=== PATIENT | female | born 1985 | race Caucasian/White ===

== ENCOUNTER 2025-02-05 19:49 | Emergency (ER) | payer OTHER ==
[~2025-02-05] VITALS: Ht 152.4 cm; Wt 90.0 kg
[~2025-02-05 19:49] MED LIST: CELEXA40 MG PO
[2025-02-05 20:13] LABS: BASOPHILS 0.4 % (0.1-1.2); EOSINOPHILS 0.6 % (0.7-5.8); LYMPHOCYTES 24.9 % (19.3-51.7); MCH 30.5 PG (25.6-32.2); MCHC 33.3 g/dL (32.2-35.5); MCV 91.6 fL (79.4-94.8); MONOCYTES 6.7 % (4.7-12.5); NEUTROPHILS 67.2 % (34.0-71.1); RBC 4.03 M/uL (3.93-5.22)
[2025-02-05 20:28] LABS: ALT (SGPT) 17.0 U/L (14-59); AST (SGOT) 10.0 U/L (15-37); GLOMERULAR FILTRATION RATE,EST 86.0 mL/min (>60); PROTEIN, TOTAL 7.3 g/dL (6.4-8.2); UREA NITROGEN 12.0 mg/dL (7-18)
[2025-02-05] MEDS ORDERED: PREDNISONE20 MG PO (20:34)
[2025-02-05] MEDS ORDERED: CIPRO500 MG PO (20:34)
[2025-02-05] MEDS ORDERED: CIPROFLOXACIN 500 MG TAB PO ONE (20:45)
[2025-02-05] MEDS ORDERED: predniSONE 20 MG TAB PO ONE (20:45)
[2025-02-05] MEDS ORDERED: FLUCONAZOLE150 MG PO (21:00)
[2025-02-05 21:02] VITALS: BP 137/72
[2025-02-06] MEDS ORDERED: LYRICA150 MG PO (18:34)
[2025-02-06] MEDS ORDERED: LYRICA200 MG PO (18:34)
[2025-02-06] MEDS ORDERED: TRAMADOL HCL50 MG PO (18:35)
[2025-02-06] MEDS ORDERED: ADDERALL 10 MG10 MG PO (18:37)
[2025-02-06] MEDS ORDERED: ADDERALL XR 2525 MG PO (18:37)
[2025-02-06] MEDS ORDERED: DESVENLAFAXINE100 MG PO (18:39)
[2025-02-06] MEDS ORDERED: WELLBUTRIN XL300 MG PO (18:40)
[2025-02-06] MEDS ORDERED: PRAZOSIN HCL2 MG PO (18:40)
[2025-02-06] MEDS ORDERED: CLARITIN10 MG PO (18:41)
[2025-02-06] MEDS ORDERED: TURMERIC500 M2 PO (18:41)
== END 2025-02-05 21:03 | disposition home or self-care (01) ==
LOC: ED 19:49
PROVIDERS: Family Medicine
DX: L73.2 Hidradenitis suppurativa (principal); Z88.1 Allergy status to other antibiotic agents; Z88.8 Allergy status to other drugs, medicaments and biological substances; Z91.018 Allergy to other foods; Z79.899 Other long term (current) drug therapy
CPT/HCPCS: 36415; 80053; 85025; 99283; J7512

== ENCOUNTER 2025-02-06 16:31 | Emergency (ER) | payer OTHER ==
[~2025-02-06] VITALS: Ht 152.4 cm; Wt 94.2 kg
[~2025-02-06 16:31] MED LIST changes: +CIPRO500 MG PO; +FLUCONAZOLE150 MG PO; +PREDNISONE20 MG PO
--- OUTSIDE RECORDS SUMMARY | 2025-02-06 16:38 | XMS ---
PreManage Notification: LUISITO MEDEL Security Roof [employer] Events No recent Security Events currently on file CRITERIA MET - [facility] - 2 Visits in 30 Days CARE PROVIDERS -, [facility] Dentist: Communications Maintainer [facility] PHONE: [phone] DELBERT GUNN Physician Inspector Plating Carole NICHOLS PHONE: [phone] EDUARDA IRIZARRY [facility] Current PHONE: [phone] Marisol has no Care Guidelines for this patient. E.Kira VISIT COUNT (12 MO.) 2 CONOR Nance TOTAL 2 NOTE: Visits indicate total known visits. ED/UCC VISIT TRACKING (12 MO.) 02/06/2025 16:32 [facility] [place] TYPE: Emergency COMPLAINT: - FEVER,SWEATING 02/05/2025 19:52 [facility] [place] TYPE: Emergency COMPLAINT: - POSSIBLE CELLULITUS INPATIENT VISIT TRACKING (12 MO.) No inpatient visits to display in this time frame [email or web address]
[2025-02-06] MEDS ORDERED: LYRICA150 MG PO (18:34)
[2025-02-06] MEDS ORDERED: LYRICA200 MG PO (18:34)
[2025-02-06] MEDS ORDERED: TRAMADOL HCL50 MG PO (18:35)
[2025-02-06] MEDS ORDERED: ADDERALL 10 MG10 MG PO (18:37)
[2025-02-06] MEDS ORDERED: ADDERALL XR 2525 MG PO (18:37)
[2025-02-06] MEDS ORDERED: DESVENLAFAXINE100 MG PO (18:39)
[2025-02-06] MEDS ORDERED: WELLBUTRIN XL300 MG PO (18:40)
[2025-02-06] MEDS ORDERED: PRAZOSIN HCL2 MG PO (18:40)
[2025-02-06] MEDS ORDERED: TURMERIC500 M2 PO (18:41)
[2025-02-06] MEDS ORDERED: CLARITIN10 MG PO (18:41)
[2025-02-06 19:46] LABS: BASOPHILS 0.1 % (0.1-1.2); EOSINOPHILS 0 % (0.7-5.8); LYMPHOCYTES 6.0 % (19.3-51.7); MCH 30.7 PG (25.6-32.2); MCHC 33.4 g/dL (32.2-35.5); MCV 91.9 fL (79.4-94.8); MONOCYTES 2.4 % (4.7-12.5); NEUTROPHILS 91.2 % (34.0-71.1); RBC 4.33 M/uL (3.93-5.22)
[2025-02-06 20:03] LABS: ALT (SGPT) 17.0 U/L (14-59); AST (SGOT) 10.0 U/L (15-37); GLOMERULAR FILTRATION RATE,EST 93.0 mL/min (>60); PROTEIN, TOTAL 8.0 g/dL (6.4-8.2); UREA NITROGEN 12.0 mg/dL (7-18)
[2025-02-06 21:12] VITALS: BP 126/80
== END 2025-02-06 21:13 | disposition home or self-care (01) ==
LOC: ED 16:31
PROVIDERS: Family Medicine
DX: L73.2 Hidradenitis suppurativa (principal); Z88.1 Allergy status to other antibiotic agents; Z88.8 Allergy status to other drugs, medicaments and biological substances; Z91.0120 Allergy to eggs, unspecified; Z91.018 Allergy to other foods; Z91.048 Other nonmedicinal substance allergy status; Z79.899 Other long term (current) drug therapy
CPT/HCPCS: 36415; 76882; 80053; 83605; 85025; 87040; 87077; 87186; 99284-25

== ENCOUNTER 2025-02-20 15:05 | Emergency (ER) | payer OTHER ==
[~2025-02-20] VITALS: Ht 152.4 cm; Wt 91.3 kg
[~2025-02-20 15:05] MED LIST changes: +ADDERALL 10 MG10 MG PO; +ADDERALL XR 2525 MG PO; +CLARITIN10 MG PO; +DESVENLAFAXINE100 MG PO; +LYRICA150 MG PO; +LYRICA200 MG PO; +PRAZOSIN HCL2 MG PO; +TRAMADOL HCL50 MG PO; +TURMERIC500 M2 PO; +WELLBUTRIN XL300 MG PO
--- OUTSIDE RECORDS SUMMARY | 2025-02-20 15:12 | XMS ---
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 E.Kira VISIT COUNT (12 MO.) 3 CONOR Nance TOTAL 3 NOTE: Visits indicate total known visits. ED/UCC VISIT TRACKING (12 MO.) 02/20/2025 15:06 [facility] [place] TYPE: Emergency COMPLAINT: - SORE THROAT 02/06/2025 16:32 [facility] [place] TYPE: Emergency COMPLAINT: - FEVER,SWEATING DIAGNOSES: - Allergy status to other antibiotic agents - Allergy status to other drugs, medicaments and biological substances - Allergy to eggs, unspecified - Allergy to other foods - Hidradenitis suppurativa - Other mfg assoc (current) drug therapy - Other nonmedicinal substance allergy status 02/05/2025 19:52 [facility] [place] TYPE: Emergency COMPLAINT: - POSSIBLE CELLULITUS DIAGNOSES: - Allergy status to other antibiotic agents - Allergy status to other drugs, medicaments and biological substances - Allergy to other foods - Cellulitis of right lower limb - Hidradenitis suppurativa - Hidradenitis suppurativa - Other custodial (current) drug therapy INPATIENT VISIT TRACKING (12 MO.) No inpatient visits to display in this time frame [id number]
[2025-02-20] MEDS ORDERED: SODIUM CHLORIDE 0.9% 1,000 ML IV ONE ×2 (18:30→19:30)
[2025-02-20] MEDS ORDERED: KETOROLAC TROMETHAMINE 15 MG/ML VIAL IV ONE (18:30)
[2025-02-20] MEDS ORDERED: MENTHOL/CETYLPYRD CL 1 LOZ LOZENGE PO PRN (18:30)
[2025-02-20] MEDS ORDERED: HYDROmorphone HCL 1 MG/ML SYR IV PRN (18:30)
[2025-02-20 19:07] LABS: ALT (SGPT) 20.0 U/L (14-59); AST (SGOT) 21.0 U/L (15-37); GLOMERULAR FILTRATION RATE,EST 108.0 mL/min (>60); PROTEIN, TOTAL 7.7 g/dL (6.4-8.2); UREA NITROGEN 8.0 mg/dL (7-18)
[2025-02-20 19:13] LABS: BASOPHILS 0.3 % (0.1-1.2); EOSINOPHILS 0.8 % (0.7-5.8); LYMPHOCYTES 8.9 % (19.3-51.7); MCH 30.4 PG (25.6-32.2); MCHC 32.5 g/dL (32.2-35.5); MCV 93.5 fL (79.4-94.8); MONOCYTES 5.8 % (4.7-12.5); NEUTROPHILS 83.9 % (34.0-71.1); RBC 4.15 M/uL (3.93-5.22)
[2025-02-20] MEDS ORDERED: FLUCONAZOLE IV ONE (19:30)
[2025-02-20] MEDS ORDERED: SODIUM CHLORIDE IV ONE (19:30)
[2025-02-20] MEDS ORDERED: HYDROCODONE BIT/ACETAMINOPHEN 5/325 MG 1 TAB HOME.PACK PO ONE (19:30)
[2025-02-20] MEDS ORDERED: HYDROCODON-ACE1 EA10 PO (19:32)
[2025-02-20] MEDS ORDERED: FLUCONAZOLE200 MG PO (19:32)
[2025-02-20 20:05] VITALS: BP 117/79
== END 2025-02-20 22:00 | disposition home or self-care (01) ==
LOC: ED 15:05
PROVIDERS: Emergency Medicine
DX: B37.81 Candidal esophagitis (principal); Z88.1 Allergy status to other antibiotic agents; Z91.0120 Allergy to eggs, unspecified; Z91.018 Allergy to other foods; Z88.8 Allergy status to other drugs, medicaments and biological substances; Z91.048 Other nonmedicinal substance allergy status; Z79.899 Other long term (current) drug therapy
CPT/HCPCS: 36415; 80053; 85025; 96365; 96366; 96375; 99284-25; A9270; J1171; J1450; J1885; J7030